=== PATIENT | male | born 1935 | race Caucasian/White ===

== ENCOUNTER → 2016-07-23 | Outpatient (CLI) | payer MEDICARE, OTHER ==
[~2016-07-23] MED LIST: IOHEXOL 300 MG/ML 50ml INJECTION ONE; NORMAL SALINE 100 ML ONE; SALINE FLUSH 10ml SYRINGE ONE
--- NOTE | 2016-07-23 10:21 | DI ---
Indication: ITS.REASON: G50.0 Trigeminal neuralgia PROCEDURE: CT HEAD W/WO CONTRAST: Comparison: None Technique: Axial CT images through the head were performed without and with IV contrast. Iterative Reconstruction dose reducing technique was utilized. Contrast: Omnipaque 300 50mL FINDINGS: The ventricles are of normal size, shape, and contour for the patient's age. 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 Subinsular low attenuation bilaterally could be due to old microvascular ischemia. The brainstem, cerebellum, and cerebral hemispheres have a normal morphology and CT attenuation. No hemorrhage, mass effect, mass lesions, or edema is evident. No areas of abnormal enhancement are seen. The visualized portions of the skull base, sinuses, and calvarium demonstrate no abnormality. Old healed left side traumatic arch fracture. Orthopedic hardware in the left supraorbital frontal bone. No enhancing masses seen along the expected course of the trigeminal nerves. IMPRESSION: Unremarkable head CT for the patient's age, both before and after contrast. .
== END ==
LOC: IMA 09:13
PROVIDERS: ATTEND Family Medicine
DX: G50.0 Trigeminal neuralgia (principal)
CPT/HCPCS: 70470; J7050; Q9967